=== PATIENT | male | born 1975 | race Two or more races ===

== ENCOUNTER 2016-04-02 14:17 | Emergency (ER) | payer OTHER ==
[2016-04-02 14:45] VITALS: BP 144/86; PULSE 74; RESP 18; TEMP 98.1; O2SAT 97
--- NOTE | 2016-04-02 15:10 | UCPHY ---
H & P Time Seen by Provider: 04/02/16 14:50 Patient Type: Established Smoking Status: Never smoked Constitutional: Initial Vital Signs Temperature (C) 36.7 C 04/02/16 14:42 Heart Rate 74 04/02/16 14:42 Respiratory Rate 18 04/02/16 14:42 Blood Pressure 144/86 H 04/02/16 14:42 O2 Sat (%) 97 04/02/16 14:42 O2 Delivery Mode Room Air Allergies/Adverse Reactions: No Known Allergies Allergy (Verified 11/02/13 12:19) Home Medications: Medication Instructions Recorded No Medications [No Known] 01/02/12 Meclizine HCl [Meclizine HCl 25 mg 25 mg PO TID PRN #15 tab 04/02/16 (RX,OTC)] Departure - Departure Clinical Impression: Vertigo Acute labyrinthitis Qualifiers: Laterality: unspecified laterality Qualified Code(s): H83.09 - Labyrinthitis, unspecified ear Condition: Good Instructions: Labyrinthitis (ED) Additional Instructions: No driving as long as symptoms continue. Meclizine also comes as an OTC medication = Bonnine. Return if fever or worse or new symptoms. Follow up with ENT in 10 days if not all better. Referrals: AMA [email or web address],. [Primary Care Provider] - As per Instructions Bailey Keith MD [Medical Doctor] - As per Instructions Prescriptions: Meclizine HCl [Meclizine HCl 25 mg (RX,OTC)] 25 mg PO TID PRN #15 tab PRN Reason: Dizziness - PQRS PQRS Measurement: NA
== END 2016-04-02 15:29 | disposition home or self-care (01) ==
LOC: CED 14:17
DX: R42 Dizziness and giddiness (principal); H83.09 Labyrinthitis, unspecified ear
CPT/HCPCS: G0463-PO